=== PATIENT | female | born 1955 | race Two or more races ===

== ENCOUNTER → 2024-10-29 | Outpatient (CLI) | payer MEDICARE, MEDICAID, SELFPAY ==
--- NOTE | 2024-10-29 14:15 | XR_ITS ---
Examination: Diagnostic digital mammography, bilateral Computer aided detection 3-D breast Tomosynthesis, bilateral Date and time of exam: October 29, 2024 1412 hours INDICATIONS: History left breast stereotactic biopsy Technique: Nonmagnified MLO, CC views of the breasts to been obtained, reconstructed from 3-D Tomosynthesis images. R2 computer aided detection program utilized for evaluation of suspicious masses and/or abnormal calcifications. 3-D Tomosynthesis images obtained. Findings: The breasts are heterogeneously dense, which may obscure small masses Grouped suspicious microcalcifications inner upper left breast are noted The breast biopsy marker as separate from these calcifications Impression: BI-RADS Category 4: Suspicious for malignancy Recommend rebiopsy of the focus of microcalcifications upper outer left breast as the breast biopsy marker appears to projects separate from the microcalcifications.
--- NOTE | 2024-10-29 14:30 | XR_ITS ---
Examination: Breast ultrasound complete, bilateral Date and time of exam: October 29, 2024 1427 hours INDICATIONS: Mammogram May 18, 2016 with microcalcifications 12:00 position left breast, family history breast cancer Technique: Real-time grayscale ultrasonographic imaging bilateral breasts, including all 4 quadrants as well as nipple retroareolar and axillary regions. Findings: Sonographic images right breast 6:00 oval mass with shadowing 6 x 6 mm Sonographic images left breast No cystic or solid mass IMPRESSION: BI-RADS Category 3: Probably benign findings Recommend 6 month right breast sonogram follow-up to document stability of 6:00 nodule with calcifications described above
== END | disposition home or self-care (01) ==
LOC: CDIM 13:57
PROVIDERS: Referring Provider Physician Assistant; Visit Provider Physician Assistant
DX: R92.343 Mammographic extreme density, bilateral breasts (principal); R92.0 Mammographic microcalcification found on diagnostic imaging of breast; N63.15 Unspecified lump in the right breast, overlapping quadrants
CPT/HCPCS: 76641; 77062; 77066; G0279

== ENCOUNTER 2025-08-12 11:41 | Emergency (ER) | payer MEDICARE, MEDICAID, SELFPAY ==
[2025-08-12 11:43] VITALS: BP 154/76; PULSE 73; RESP 18; TEMP 36.8; O2SAT 96
[2025-08-12 11:56] VITALS: PULSE 72; RESP 16; O2SAT 98; BMI 25.0
--- NOTE | 2025-08-12 11:57 | EKG_ITS ---
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
--- NOTE | 2025-08-12 11:57 | PD.EDRME ---
Rapid Medical Screening Exam RME Arrival date/time: 08/12/25 11:41 Chief Complaint: Syncope / Near Syncope Time Seen by Provider: 08/12/25 11:55 Vital signs: Vital Signs Temperature 98.3 F 08/12/25 11:43 Pulse Rate 73 08/12/25 11:43 Respiratory Rate 18 08/12/25 11:43 Blood Pressure 154/76 H 08/12/25 11:43 Pulse Oximetry (%) 96 08/12/25 11:43 Oxygen Delivery Method Room Air 08/12/25 11:43 RME Narrative: 70 year old female presents to the ED BIBA for evaluation after ground level fall today. Patient reports she had stood up too quickly and felt faint, causing her to fall forward. Reports striking her face on the floor resulting in an abrasion to the bridge of nose. In the ED, she complains of her body aching and pain to the bridge of nose. Otherwise no other injuries or complaints reported. Per medics, on scene patient was ambulatory, awake, and answering all questions appropriately. Prehospital BS 110 and vital signs were within normal limits. Exam: Minor abrasion to bridge of nose Clinical Impression: Near syncope
[2025-08-12] MEDS: ACETAMINOPHEN 500 MG TABLET 1000 MG PO (12:22)
--- NOTE | 2025-08-12 12:23 | XR_ITS ---
Examination: CT brain head without contrast. 2-D sagittal coronal reconstructions Date and time of exam: 08/12/2025, 2:13 p.m. INDICATION: Syncope with fall today COMPARISON: None CTDI: vol (mGy): 45.3 DLP: (mGycm): 844 Technique: Multiple CT axial sections of the brain have been obtained, 5 mm slice thickness. Contrast has not been administered. 2-D sagittal, coronal reconstructions have been obtained Low dose protocols were performed. One or more of the following dose reduction techniques were used; automated exposure control, adjustment of the mA and/or KV according to patient size, use of iterative reconstruction technique. Findings: BRAIN PARENCHYMA: No evidence for acute large vessel transcortical ischemic infarction, hemorrhage, mass, or midline shift. Mild bilateral frontal and parietal predominant involutional changes are present. Nonspecific bilateral cerebral white matter hypoattenuation most likely represents sequela of chronic ischemic microangiopathy in this age demographic. No cerebellar tonsillar ectopia. No apparent acute abnormality of the cerebellum. VENTRICLES / EXTRA-AXIAL SPACES: No hydrocephalus, extra-axial hematoma or mass. Bilateral ICA and vertebral atherosclerotic calcifications are present. CALVARIUM: No skull fracture or concerning focal lesion. SINUSES: Mild mucosal hypertrophy is present along the floor the left maxillary sinus. No fluid levels or masses otherwise. The visualized mastoid air cells are clear. OTHER EXTRACRANIAL STRUCTURES: Soft tissue swelling and subcutaneous gas are present at the nose, compatible with an acute injury. However, there does not appear to be an acute displaced nasal bone fracture on either side on the provided images. IMPRESSION: Negative noncontrast head CT for acute intracranial abnormality. Soft tissue swelling and subcutaneous gas are present at the nose, compatible with an acute injury. However, there does not appear to be an acute displaced nasal bone fracture on either side on the provided images.
--- NOTE | 2025-08-12 12:23 | XR_ITS ---
Examination: CT cervical spine without contrast 2-D sagittal reconstructions 2-D coronal reconstructions 3-D reconstructions. Exam date and time: 08/12/2025, 2:11 p.m. INDICATION: Syncope with fall, pain to the back of the neck. CTDI:vol (mGy) 13.8 DLP: (mGycm) 322 Technique: Multiple 2 mm axial sections of the cervical spine have been obtained. The coronal and sagittal reconstructions have been obtained. 3-D reconstructions have been obtained. Low dose protocols were performed. One or more of the following dose reduction techniques were used; automated exposure control, adjustment of the mA and/or KV according to patient size, use of iterative reconstruction technique. Findings: FINDINGS: No evidence for acute fracture or traumatic subluxation in the cervical spine. Mild grade 1 degenerative related anterolisthesis of C7 over T1 identified. No prevertebral soft tissue swelling. Multilevel multifocal degenerative changes are present but otherwise there is no evidence for large disc herniation. Disc osteophyte complexes project into the central canal dominant from C3-4 through C6-C7, with moderate to high-grade central canal stenosis and suspected mild cord contact at C4-C5 and C5-6. Multilevel bilateral facet arthropathy and uncovertebral joint spurring are present, contributing to varying degrees of cervical neural foraminal stenoses bilaterally. No concerning lytic or blastic lesions are detected. No evidence for soft tissue edema or hematoma. A complex solid and cystic mass is present in or adjacent to the lower posterior aspect of the left parotid gland. The mass extends outside the ofdng-li-woev on axial images but measures approximately 2.4 x 2.0 cm in transaxial dimensions in the luldb-tp-kool, as well as 2.5 cm in craniocaudal dimension. Limited views of the lung apices show no significant findings. Fluid in the visualized esophageal lumen is likely reflective of underlying gastroesophageal reflux. IMPRESSION: Negative CT cervical spine for acute fracture. Multilevel cervical degenerative changes with central canal stenoses, greatest at C4-5 and C5-C6, and multilevel neural foraminal stenosis. Complex solid and cystic mass in or adjacent to the lower posterior aspect of the left parotid gland. This is concerning for neoplasm. Comparison to prior imaging if available would be helpful to assess for stability versus change. Otherwise, the consultation for further management is recommended. Fluid in the visualized esophageal lumen is likely reflective of underlying gastroesophageal reflux.
--- NOTE | 2025-08-12 12:25 | PC.NURSE ---
PT BIBA for syncopal episode, She stated when she got up from her bed she took a few steps and collapsed for unknown amount of time until she had a visitor come to her front door. She denies any recent medication changes or health changes. She sustained superficial abrasions to left arm, anterior nose and bilateral friction rub. Currently patient states she is having pain to her head, shoulders and face. Tylenol ES orderedfor pain.
[2025-08-12 12:28] LABS: Collection Type, Urine Clean Catch
--- NOTE | 2025-08-12 12:31 | PD.EDFALL ---
ED Fall Injury RME/HPI General Chief Complaint: Syncope / Near Syncope Stated Complaint: SYNCOPE Time Seen by Provider: 08/12/25 11:55 Arrival date/time: 08/12/25 11:41 RME / HPI RME / HPI Narrative: 70 year old female presents to the ED BIBA for evaluation after ground level fall today. Patient reports she had stood up too quickly and felt faint, causing her to fall forward. Reports striking her face on the floor resulting in an abrasion to the bridge of nose. In the ED, she complains of her body aching and pain to the bridge of nose. Otherwise no other injuries or complaints reported. Per medics, on scene patient was ambulatory, awake, and answering all questions appropriately. Prehospital BS 110 and vital signs were within normal limits. Exam: Minor abrasion to bridge of nose Impression: Near syncope Related Data Home Medications ?Medication ?Instructions ?Recorded ?Confirmed carvedilol 12.5 mg tablet (Coreg) 12.5 mg PO BID ##0 03/19/12 09/23/18 clonazepam 0.5 mg tablet 1 mg PO BID ##0 03/19/12 09/23/18 esomeprazole magnesium 40 mg 40 mg PO DAILY ##0 03/19/12 09/23/18 capsule,delayed release (Nexium) gabapentin 300 mg tablet 300 mg PO BID ##0 03/19/12 09/23/18 metformin 500 mg tablet 500 mg PO BID ##0 03/19/12 09/23/18 pioglitazone 30 mg tablet (Actos) 30 mg PO DAILY ##0 03/19/12 09/23/18 sertraline 50 mg tablet 50 mg PO DAILY ##0 03/19/12 09/23/18 sulindac 200 mg tablet 200 mg PO BIDPRN ##0 03/19/12 09/23/18 tolterodine 4 mg capsule,extended 4 mg PO DAILY ##0 03/19/12 09/23/18 release 24 hr (Detrol LA) Allergies Allergy/AdvReac Type Severity Reaction Status Date / Time No Known Allergies Allergy Verified 08/12/25 12:02 Review of Systems Review of Systems Systems Reviewed: All systems reviewed, normal except as documented Past Medical History Past Medical History CARDIAC: Positive Cardiac Disorders and Hypotension ENDOCRINE: Positive Diabetes Mellitus Type 2 PSYCHO/SOCIAL: Positive Depression and Anxiety Social History SMOKING STATUS: Current every day smoker ED Exam Narrative Physical exam: GENERAL APPEARANCE: alert and oriented x 4, well-developed, well-nourished, no acute distress HEENT: Normocephalic, small abrasion to the bridge of nose; pupils equal, round, reactive to light; EOMI; mucous membranes pink, moist; oropharynx clear NECK: Supple LUNGS: CTABL; no wheezes, no rales, no rhonchi HEART: Regular rate, regular rhythm; normal S1, S2; no murmurs ABDOMEN: non distended; normal BS; soft, no tenderness, no guarding, no rebound; no masses, no organomegaly, no hernia EXTREMITIES: atraumatic; no edema NEUROLOGIC: awake; alert and oriented x4; cranial nerves II-XII grossly intact; no focal sensory or motor deficits PSYCHIATRIC: appropriate mood and affect SKIN: warm, dry, normal color; no rashes Course Quality Measures none Orders Category Date Time Status EKG (ED ONLY) *Do not use* NOW Care 08/12/25 11:[address] cervical spine wo con Stat Exams 08/12/25 12:[address] head/brain wo con Stat Exams 08/12/25 12:23 Completed EKG (ED Only) Stat Exams 08/12/25 11:57 Draft Alcohol, Blood Medical Stat Lab 08/12/25 12:24 Completed CBC Stat Lab 08/12/25 12:24 Completed CMP [Comprehensive Metabolic Panel] Stat Lab 08/12/25 12:24 Completed Drug Screen,Urine Stat Lab 08/12/25 12:00 Completed Troponin I Stat Lab 08/12/25 12:24 Completed UA, C/S IF [Urinalysis, C/S if Indicated] Stat Lab 08/12/25 12:00 Completed Acetaminophen Tab [Tylenol ES Tab] Med 08/12/25 11:57 Discontinued 1,000 mg PO X1 ONE Vital Signs Vital signs: Vital Signs Temperature 98.3 F 08/12/25 11:43 Pulse Rate 73 08/12/25 11:43 Respiratory Rate 18 08/12/25 11:43 Blood Pressure 154/76 H 08/12/25 11:43 Pulse Oximetry (%) 96 08/12/25 11:43 Oxygen Delivery Method Room Air 08/12/25 11:43 Pulse ox is 96% on room air which is adequate. Fall MDM Narrative MDM Narrative:: Kendal Owens, am scribing for and in the presence of Dr. Montemayor. Patient remains clinically stable throughout the emergency department visit. We reviewed all the results, analysis, and treatment plans. Patient states she is aware of the lump on the left parotid gland and states she needs to follow up with PCP for referral to get it biopsied. Patient is amenable to discharge. Strict return precautions were outlined. Patient data External records reviewed:: [facility] previous records and EMS form Clinical information provided by:: patient and EMS Social determinants that could affect healthcare access:: none Patient has the following chronic illnesses:: diabetes How is presenting disease/condition affected by chronic disease/condition?: exacerbated by Evaluation data The following diagnostics were reviewed and interpreted by me:: lab results, radiology exam(s) and EKG tracing(s) Lab and/or radiology exams considered but not ordered:: None Interpretation Summary: Ordering Physician: Marta Montemayor MD Date of Service: 08/12/25 Procedure(s): CT cervical spine wo con Accession Number(s): [id number] cc: Hayes Landers MD; Marta Montemayor MD; Sina Kaufman DO~ Examination: CT cervical spine without contrast 2-D sagittal reconstructions 2-D coronal reconstructions 3-D reconstructions. Exam date and time: 08/12/2025, 2:11 p.m. INDICATION: Syncope with fall, pain to the back of the neck. CTDI:vol (mGy) 13.8 DLP: (mGycm) 322 Technique: Multiple 2 mm axial sections of the cervical spine have been obtained. The coronal and sagittal reconstructions have been obtained. 3-D reconstructions have been obtained. Low dose protocols were performed. One or more of the following dose reduction techniques were used; automated exposure control, adjustment of the mA and/or KV according to patient size, use of iterative reconstruction technique. Findings: FINDINGS: No evidence for acute fracture or traumatic subluxation in the cervical spine. Mild grade 1 degenerative related anterolisthesis of C7 over T1 identified. No prevertebral soft tissue swelling. Multilevel multifocal degenerative changes are present but otherwise there is no evidence for large disc herniation. Disc osteophyte complexes project into the central canal dominant from C3-4 through C6-C7, with moderate to high-grade central canal stenosis and suspected mild cord contact at C4-C5 and C5-6. Multilevel bilateral facet arthropathy and uncovertebral joint spurring are present, contributing to varying degrees of cervical neural foraminal stenoses bilaterally. No concerning lytic or blastic lesions are detected. No evidence for soft tissue edema or hematoma. A complex solid and cystic mass is present in or adjacent to the lower posterior aspect of the left parotid gland. The mass extends outside the eixdn-zl-atxw on axial images but measures approximately 2.4 x 2.0 cm in transaxial dimensions in the odbsa-pb-wkwt, as well as 2.5 cm in craniocaudal dimension. Limited views of the lung apices show no significant findings. Fluid in the visualized esophageal lumen is likely reflective of underlying gastroesophageal reflux. IMPRESSION: Negative CT cervical spine for acute fracture. Multilevel cervical degenerative changes with central canal stenoses, greatest at C4-5 and C5-C6, and multilevel neural foraminal stenosis. Complex solid and cystic mass in or adjacent to the lower posterior aspect of the left parotid gland. This is concerning for neoplasm. Comparison to prior imaging if available would be helpful to assess for stability versus change. Otherwise, the consultation for further management is recommended. Fluid in the visualized esophageal lumen is likely reflective of underlying gastroesophageal reflux. Dictated By: Sina Kaufman DO Signed By: <Electronically signed by Sina Kaufman DO in OV> 08/12/25 1514 Ordering Physician: Marta Montemayor MD Date of Service: 08/12/25 Procedure(s): CT head/brain wo [facility] Accession Number(s): [id number] cc: Hayes Landers MD; Marta Montemayor MD; Sina Kaufman DO~ Examination: CT brain head without contrast. 2-D sagittal coronal reconstructions Date and time of exam: 08/12/2025, 2:13 p.m. INDICATION: Syncope with fall today COMPARISON: None CTDI: vol (mGy): 45.3 DLP: (mGycm): 844 Technique: Multiple CT axial sections of the brain have been obtained, 5 mm slice thickness. Contrast has not been administered. 2-D sagittal, coronal reconstructions have been obtained Low dose protocols were performed. One or more of the following dose reduction techniques were used; automated exposure control, adjustment of the mA and/or KV according to patient size, use of iterative reconstruction technique. Findings: BRAIN PARENCHYMA: No evidence for acute large vessel transcortical ischemic infarction, hemorrhage, mass, or midline shift. Mild bilateral frontal and parietal predominant involutional changes are present. Nonspecific bilateral cerebral white matter hypoattenuation most likely represents sequela of chronic ischemic microangiopathy in this age demographic. No cerebellar tonsillar ectopia. No apparent acute abnormality of the cerebellum. VENTRICLES / EXTRA-AXIAL SPACES: No hydrocephalus, extra-axial hematoma or mass. Bilateral ICA and vertebral atherosclerotic calcifications are present. CALVARIUM: No skull fracture or concerning focal lesion. SINUSES: Mild mucosal hypertrophy is present along the floor the left maxillary sinus. No fluid levels or masses otherwise. The visualized mastoid air cells are clear. OTHER EXTRACRANIAL STRUCTURES: Soft tissue swelling and subcutaneous gas are present at the nose, compatible with an acute injury. However, there does not appear to be an acute displaced nasal bone fracture on either side on the provided images. IMPRESSION: Negative noncontrast head CT for acute intracranial abnormality. Soft tissue swelling and subcutaneous gas are present at the nose, compatible with an acute injury. However, there does not appear to be an acute displaced nasal bone fracture on either side on the provided images. Dictated By: Sina Kaufman DO Signed By: <Electronically signed by Sina Kaufman DO in OV> 08/12/25 1506 Medications / Prescriptions Medications or Prescriptions considered but not ordered:: None Medication administrations:: Medication Administration History Discontinued Medications Acetaminophen (Acetaminophen 500 Mg Tablet) 1,000 mg PO X1 ONE Stop: 08/12/25 11:58 Last Admin: 08/12/25 12:22 Dose: 1,000 mg Documented By: ESTELLE See above Consultations Consultation(s) initiated? (list below): No Diagnosis Fall Differential Diagnosis: syncope, compression fracture and other (abrasion) Most likely diagnosis given after review of the tests above:: Near syncope Abrasion of face Head injury Mass of left parotid gland Admission Indicated Admission indicated?: not indicated Explain why admission is indicated or not indicated:: With no condition needing emergent intervention, there was no indication for admission. Admission Request Was there a request for admission?: No Disposition Plan Disposition Plan: Discharge Discharge Attestation Discharge Attestation: The patient and all family members were given an opportunity to ask questions and understood the discharge instructions. Discharge instructions specifically effects, indications for sooner follow up or return to the emergency department, and the expected course of current diagnosis. Patient condition: Stable Discharge Plan Plan Patient Disposition: HOME (Self Care) Prescriptions/Referrals Prescriptions/Med Rec: No Action metformin 500 mg Tablet 500 mg PO BID Qty: 0 carvedilol [Coreg] 12.5 MG tablet 12.5 mg PO BID Qty: 0 tolterodine [Detrol LA] 4 MG capsule,extended release 24hr 4 mg PO DAILY Qty: 0 clonazepam 0.5 MG tablet 1 mg PO BID Qty: 0 esomeprazole magnesium [Nexium] 40 MG capsule,delayed release(DR/EC) 40 mg PO DAILY Qty: 0 pioglitazone [Actos] 30 MG tablet 30 mg PO DAILY Qty: 0 sertraline 50 mg Tablet 50 mg PO DAILY Qty: 0 sulindac 200 MG tablet 200 mg PO BIDPRN Qty: 0 gabapentin 300 MG tablet 300 mg PO BID Qty: 0 Referrals: Hayes Landers MD [Primary Care Provider, Family Practice] - In 1 week Problem List Clinical Impression: Near syncope, Abrasion of face, Head injury, Mass of left parotid gland Patient/Caregiver Discharge Instructions Education Materials: ED Salivary Gland Swelling ... Additional Instructions: On CT scan, there appears to be a mass in your left salivary gland. Follow up with your doctor for referral for biopsy and treatment. Print Language: [place] Stand Alone Forms: Farrah Award Info., Patient Portal Info Letter
[2025-08-12 12:34] LABS: Basophils # (Auto) 0.0 Thou/mm3 (0.0-0.2); Basophils % (Auto) 1 % (0-2.5); Eosinophils # (Auto) 0.1 Thou/mm3 (0.0-0.5); Eosinophils % (Auto) 1 % (0-10); Hematocrit 41.0 % (36.0-46.0); Hemoglobin 13.1 g/dL (12.0-16.0); Immature Granulocytes Auto 0.01 Thou/mm3 (0.00-0.00); Lymphocytes # (Auto) 2.9 Thou/mm3 (1.0-4.8); Lymphocytes % (Auto) 44 % (10-50); Mean Corpuscular HGB Conc 32.0 g/dl (31.0-37.0); Mean Corpuscular Hemoglobin 31.0 pg (25.0-35.0); Mean Corpuscular Volume 97 fL (80-100); Monocytes # (Auto) 0.4 Thou/mm3 (0.0-0.8); Monocytes % (Auto) 6 % (0-12); Neutrophils # (Auto) 3.3 Thou/mm3 (1.8-7.7); Neutrophils % (Auto) 49 % (37-80); Nucleated Red Blood Cell # 0.00 Thou/mm3 (0.00-0.00); Nucleated Red Blood Cell % 0 /100 WBC (0); Platelet Count 152 Thou/mm3 (140-440); RDW Standard Deviation 48.4 fL (36.4-46.3); Red Blood Count 4.22 Miln/mm3 (4.00-5.20); White Blood Count 6.7 Thou/mm3 (3.6-11.0)
[2025-08-12 12:38] LABS: Bacteria,Urine Rare; Bilirubin,Urine Negative (Negative); Blood,Urine Negative (Negative); Clarity,Urine Turbid (Clear/Hazy); Color,Urine Yellow (Lt Yel-Yel); Culture Indicated,Urine Not Indicated; Glucose, Urine Negative (Negative); Hyaline Casts,Urine < 1 /hpf (0-1); Ketones,Urine Negative (Negative); Leukocyte Esterase,Urine Positive (Negative); Nitrite,Urine Negative (Negative); PH,Urine 6.0 (5.0-7.0); Protein,Urine Negative (Neg - Trace); RBC,Urine 2 /hpf (0-3); Specific Gravity,Urine 1.010 (1.001-1.035); Squamous Epithelial Cell,Urine 1 /hpf (0-5); Urobilinogen,Urine Negative mg/dL (0.0-1.0); WBC,Urine 10 /hpf (0-5)
[2025-08-12 12:45] LABS: Amphetamine/Methamp Scrn,U Negative (Negative); Barbiturate Screen,Urine Negative (Negative); Benzodiazepines Screen,Urine Negative (Negative); Benzoylecgonine Screen, Ur Negative (Negative); Fentanyl Screen,Urine Negative (Negative); Opiate Screen,Urine Negative (Negative); THC Screen,Urine Negative (Negative)
[2025-08-12 12:51] LABS: Alanine Aminotransferase 10 U/L (10-49); Albumin, Serum 4.0 gm/dL (3.4-4.8); Albumin/Globulin Ratio 1.6 (1.2-2.2); Alcohol, Blood Medical 15.0 mg/dL (0-10.0); Alkaline Phosphatase 60 U/L (46-116); Anion Gap 8 (7-16); Aspartate Amino Transferase 28 U/L (0-34); BUN/Creatinine Ratio 8 Ratio (12-20); Bilirubin,Total 0.2 mg/dL (0.3-1.2); Blood Urea Nitrogen 6 mg/dL (9-23); Calcium 9.0 mg/dL (8.3-10.6); Calcium (Corrected) 9.0 mg/dL (8.5-10.1); Carbon Dioxide 20.1 mMol/L (20.0-31.0); Chloride 109 mMol/L (98-107); Creatinine (Component) 0.8 mg/dL (0.6-1.3); Estimated Creatinine Clearance 51.4 mL/min (>60); Globulin 2.5 gm/dL (2.3-3.5); Glucose 200 mg/dL (74-106); Osmolality,Calculated 277 (275-295); Potassium 4.1 mMol/L (3.4-5.1); Sodium 137 mMol/L (136-145); Total Protein 6.5 gm/dL (5.7-8.2); Troponin I < 0.020 ng/mL (0.0-0.045); eGFR > 60 See Note
[2025-08-12 13:01] VITALS: BP 162/69; PULSE 68; RESP 19; TEMP 37.1; O2SAT 99
[2025-08-12 15:06] VITALS: BP 109/70; PULSE 67; RESP 19; TEMP 36.7; O2SAT 97
[2025-08-12] MEDS: HYDROcodone/APAP 5/325 TABLET 1 TAB PO (15:46)
== END 2025-08-12 16:16 | disposition home or self-care (01) ==
PROVIDERS: Emergency Provider Emergency Medicine; PCP Family Medicine
DX: R22.0 Localized swelling, mass and lump, head (principal); R55 Syncope and collapse; S02.2XXA Fracture of nasal bones, initial encounter for closed fracture; S00.81XA Abrasion of other part of head, initial encounter; K21.9 Gastro-esophageal reflux disease without esophagitis; W18.30XA Fall on same level, unspecified, initial encounter
CPT/HCPCS: 36415; 70450; 72125; 80053; 80307; 80320; 81001; 84484; 85025; 93005; 99283; A9270; G0480